=== PATIENT | female | born 1965 | race Caucasian/White ===

== ENCOUNTER 2017-04-13 07:24 | Outpatient (CLI) | payer OTHER ==
[~2017-04-13 07:24] MED LIST: CATAFLAM50 MG PO; OXYC1TAB9 PO; PROTONIX40 MG PO; ZOFRAN4 MG PO
== END 2017-04-13 07:35 | disposition home or self-care (01) ==
LOC: LAB 07:24
DX: K85.90 Acute pancreatitis without necrosis or infection, unspecified (principal); E06.5 Other chronic thyroiditis

== ENCOUNTER 2017-07-26 09:46 | Outpatient (CLI) | payer OTHER | END 2017-07-26 18:13 | disposition home or self-care (01) | LOC: LAB 09:46 | DX: K92.1 Melena (principal) ==

== ENCOUNTER 2017-07-27 07:00 | Day surgery (SDC) | payer OTHER | END 2017-07-27 10:00 | disposition home or self-care (01) | LOC: AMB-ENDOS 07:00 | DX: K64.8 Other hemorrhoids (principal) ==

== ENCOUNTER 2017-11-29 11:22 | Outpatient (CLI) | payer OTHER | END 2017-12-01 12:27 | disposition home or self-care (01) | LOC: MAMO-SONO 11:22 | DX: Z12.31 Encounter for screening mammogram for malignant neoplasm of breast (principal); N60.11 Diffuse cystic mastopathy of right breast ==

== ENCOUNTER → 2017-11-29 | Outpatient (CLI) | payer OTHER | END | disposition home or self-care (01) | LOC: LAB 14:36 | DX: Z11.3 Encounter for screening for infections with a predominantly sexual mode of transmission (principal) ==

== ENCOUNTER → 2018-05-12 | Outpatient (CLI) | payer OTHER | END | disposition home or self-care (01) | LOC: RAD 05-11 09:12 → SONOGRAMA 11:19 | DX: M25.542 Pain in joints of left hand (principal) ==

== ENCOUNTER 2018-12-19 10:22 | Outpatient (CLI) | payer OTHER | END 2018-12-19 11:46 | disposition home or self-care (01) | LOC: LAB 10:22 | DX: Z11.1 Encounter for screening for respiratory tuberculosis (principal) ==

== ENCOUNTER 2019-04-24 12:09 | Outpatient (CLI) | payer OTHER | END 2019-04-24 12:19 | disposition home or self-care (01) | LOC: LAB 12:09 | DX: E78.49 Other hyperlipidemia (principal); E02 Subclinical iodine-deficiency hypothyroidism; E55.9 Vitamin D deficiency, unspecified; D50.8 Other iron deficiency anemias ==

== ENCOUNTER 2019-04-25 13:27 | Outpatient (CLI) | payer OTHER | END 2019-04-25 14:00 | disposition home or self-care (01) | LOC: SONOGRAMA 13:27 | DX: E04.1 Nontoxic single thyroid nodule (principal) ==

== ENCOUNTER 2019-04-27 08:14 | Outpatient (CLI) | payer OTHER | END 2019-04-27 08:21 | disposition home or self-care (01) | LOC: LAB 08:14 | DX: E06.9 Thyroiditis, unspecified (principal) ==

== ENCOUNTER 2019-04-27 10:05 | Outpatient (CLI) | payer OTHER | END 2019-04-27 10:12 | disposition home or self-care (01) | LOC: SONOGRAMA 10:05 | DX: E04.2 Nontoxic multinodular goiter (principal); D35.1 Benign neoplasm of parathyroid gland ==

== ENCOUNTER → 2019-07-17 08:13 | Outpatient (CLI) | payer OTHER | END | disposition home or self-care (01) | LOC: LAB 08:13 | DX: E03.8 Other specified hypothyroidism (principal); E55.9 Vitamin D deficiency, unspecified ==

== ENCOUNTER → 2019-10-11 | Outpatient (CLI) | payer OTHER | END | disposition home or self-care (01) | LOC: SONOGRAMA 11:23 | PROVIDERS: ATTEND Radiology Diagnostic Radiology | DX: N93.8 Other specified abnormal uterine and vaginal bleeding (principal) ==

== ENCOUNTER 2019-12-01 10:00 | Outpatient (CLI) | payer OTHER | END 2019-12-01 15:43 | disposition home or self-care (01) | LOC: PPH VACUNA 10:00 | DX: Z23 Encounter for immunization (principal) ==

== ENCOUNTER → 2019-12-15 | Outpatient (CLI) | payer OTHER | END | disposition home or self-care (01) | LOC: TOM 10:20 | PROVIDERS: ATTEND Radiology Diagnostic Radiology | DX: R10.84 Generalized abdominal pain (principal) ==

== ENCOUNTER → 2019-12-19 | Outpatient (CLI) | payer OTHER | END | disposition home or self-care (01) | LOC: SONOGRAMA 08:38 | PROVIDERS: ATTEND Radiology Diagnostic Radiology | DX: M79.644 Pain in right finger(s) (principal) ==

== ENCOUNTER → 2019-12-20 | Outpatient (CLI) | payer OTHER | END | disposition home or self-care (01) | LOC: LAB 10:24 | PROVIDERS: ATTEND Radiology Diagnostic Radiology | DX: E03.8 Other specified hypothyroidism (principal) ==

== ENCOUNTER → 2020-01-17 | Outpatient (CLI) | payer OTHER | END | disposition home or self-care (01) | LOC: MAMO-SONO 10:46 | PROVIDERS: ATTEND Radiology Diagnostic Radiology | DX: Z12.31 Encounter for screening mammogram for malignant neoplasm of breast (principal) ==

== ENCOUNTER 2020-04-09 08:15 | Outpatient (CLI) | payer OTHER | END 2020-04-09 15:00 | disposition home or self-care (01) | LOC: LAB 08:15 | PROVIDERS: ATTEND Radiology Diagnostic Radiology | DX: E03.8 Other specified hypothyroidism (principal); D64.89 Other specified anemias; R73.03 Prediabetes ==

== ENCOUNTER 2020-04-17 11:32 | Outpatient (CLI) | payer OTHER | END 2020-04-17 15:00 | disposition home or self-care (01) | LOC: LAB 11:32 | PROVIDERS: ATTEND Radiology Diagnostic Radiology | DX: E78.2 Mixed hyperlipidemia (principal); Z00.8 Encounter for other general examination ==

== ENCOUNTER 2020-12-09 08:00 | Outpatient (CLI) | payer OTHER ==
[~2020-12-09 08:00] MED LIST changes: +SYNTHROID75 MCG PO
== END 2020-12-09 08:30 | disposition home or self-care (01) ==
LOC: PPH VACUNA 08:00
PROVIDERS: ATTEND Emergency Medicine Pediatric Emergency Medicine
DX: Z23 Encounter for immunization (principal)

== ENCOUNTER 2020-12-19 08:23 | Outpatient (CLI) | payer OTHER | END 2020-12-19 09:00 | disposition home or self-care (01) | LOC: SONOGRAMA 08:23 | PROVIDERS: ATTEND Radiology Diagnostic Radiology | DX: N95.0 Postmenopausal bleeding (principal) ==

== ENCOUNTER 2021-02-12 13:55 | Outpatient (CLI) | payer OTHER | END 2021-02-12 14:00 | disposition home or self-care (01) | LOC: MAMO-SONO 13:55 | PROVIDERS: ATTEND Radiology Diagnostic Radiology | DX: N64.89 Other specified disorders of breast (principal); Z12.31 Encounter for screening mammogram for malignant neoplasm of breast ==

== ENCOUNTER 2021-03-28 08:20 | Outpatient (CLI) | payer OTHER | END 2021-03-28 16:07 | disposition home or self-care (01) | LOC: LAB 08:20 | PROVIDERS: ATTEND Radiology Diagnostic Radiology | DX: U07.1 COVID-19 (principal) ==

== ENCOUNTER 2021-04-03 08:21 | Outpatient (CLI) | payer OTHER | END 2021-04-03 08:35 | disposition home or self-care (01) | LOC: TOM 08:21 | PROVIDERS: ATTEND Radiology Diagnostic Radiology | DX: R10.30 Lower abdominal pain, unspecified (principal) ==

== ENCOUNTER 2021-04-28 09:03 | Outpatient (CLI) | payer OTHER | END 2021-04-28 10:06 | disposition home or self-care (01) | LOC: LAB 09:03 | PROVIDERS: ATTEND Radiology Diagnostic Radiology | DX: E03.9 Hypothyroidism, unspecified (principal); E78.2 Mixed hyperlipidemia; D64.9 Anemia, unspecified ==

== ENCOUNTER 2021-05-14 08:37 | Outpatient (CLI) | payer OTHER | END 2021-05-14 12:54 | disposition home or self-care (01) | LOC: LAB 08:37 | PROVIDERS: ATTEND Radiology Diagnostic Radiology | DX: Z02.79 Encounter for issue of other medical certificate (principal) ==

== ENCOUNTER 2021-06-17 08:00 | Outpatient (CLI) | payer OTHER | END 2021-06-17 08:30 | disposition home or self-care (01) | LOC: PPH VACUNA 08:00 | PROVIDERS: ATTEND Emergency Medicine Pediatric Emergency Medicine | DX: Z23 Encounter for immunization (principal) ==

== ENCOUNTER 2021-11-12 08:00 | Outpatient (CLI) | payer OTHER | END 2021-11-12 08:05 | disposition home or self-care (01) | LOC: PPH VACUNA 08:00 | PROVIDERS: ATTEND Emergency Medicine Pediatric Emergency Medicine | DX: Z23 Encounter for immunization (principal) ==

== ENCOUNTER 2021-11-26 12:10 | Outpatient (CLI) | payer OTHER | END 2021-11-26 12:20 | disposition home or self-care (01) | LOC: PPH VACUNA 12:10 | PROVIDERS: ATTEND Emergency Medicine Pediatric Emergency Medicine | DX: Z23 Encounter for immunization (principal) ==

== ENCOUNTER → 2022-03-26 | Outpatient (CLI) | payer OTHER | END | disposition home or self-care (01) | LOC: MAMO-SONO 10:04 | PROVIDERS: ATTEND Radiology Diagnostic Radiology | DX: Z12.31 Encounter for screening mammogram for malignant neoplasm of breast (principal); N63.0 Unspecified lump in unspecified breast; R10.9 Unspecified abdominal pain; R10.2 Pelvic and perineal pain ==

== ENCOUNTER 2022-04-29 09:18 | Outpatient (CLI) | payer OTHER | END 2022-04-29 09:21 | disposition home or self-care (01) | LOC: LAB 09:18 | PROVIDERS: ATTEND Radiology Diagnostic Radiology | DX: E03.9 Hypothyroidism, unspecified (principal); E78.2 Mixed hyperlipidemia; D50.9 Iron deficiency anemia, unspecified ==

== ENCOUNTER 2022-12-14 11:30 | Outpatient (CLI) | payer OTHER | END 2022-12-14 11:40 | disposition home or self-care (01) | LOC: PPH VACUNA 11:30 | PROVIDERS: ATTEND Emergency Medicine Pediatric Emergency Medicine | DX: Z23 Encounter for immunization (principal) ==

== ENCOUNTER → 2023-12-15 07:53 | Outpatient (CLI) | payer OTHER ==
[2023-12-15 08:38] LABS: HEMATOCRIT 38.2 % (36.0-45.00); HEMOGLOBIN 12.8 g/dL (12.0-15.00); MEAN CELL VOLUME 93.4 fL (80.00-100.00); MEAN CORPUSCULAR HEMOGLOBIN 31.4 pg (27.00-32.0); MEAN CORPUSCULAR HGB CONC 33.6 g/dl (32.0-36.0); PLATELET COUNT 257 K/uL (150-450); RED BLOOD COUNT 4.09 M/uL (4.00-6.00); RED CELL DISTRIBUTION WIDTH 14.2 % (11.5-14.5)
[2023-12-15 09:47] LABS: BILIRUBIN TOTAL 0.44 mg/dL (0.3-1.2); CALCIUM 9.7 mg/dL (8.5-10.1); CHOL HDL RATIO 2.3 (0-5.0); CREATININE SERUM 0.84 mg/dL (0.55-1.02); GFR 69.16; GLOBULINA 3.9 G/DL (2.4-3.5); POTASSIUM 5.1 mEq/L (3.5-5.1); T4 TOTAL 10.1 UG/DL (4.8-13.9); TOTAL PROTEIN 7.9 gm/dL (6.4-8.2); TSH 2.69 uIU/mL (0.358-3.74)
[2023-12-15 10:10] LABS: PH,URINE 5.5 (5.0-8.0); URINE BILIRRUBIN Negative (NEGATIVE); URINE BLOOD Negative; URINE COLOR Yellow; URINE GLUCOSE Negative (NEGATIVE); URINE KETONE Negative (NEGATIVE); URINE LEUKOCYTE Small; URINE NITRATE Negative; URINE PROTEIN Negative (NEGATIVE); URINE UROBILINOGEN 0.2 E.U./dl
[2023-12-15 10:14] LABS: URINE BACTERIA 28.9 uL (0.0-1933); URINE EPITHELIAL CELLS 7.3 uL (0.0-38.8); URINE WBC 15.2 uL (0.0-23.2)
[2023-12-15 10:21] LABS: URINE APPEARANCE CLEAR; URINE CAST 0.76 uL (0.0-1.40)
== END | disposition home or self-care (01) ==
LOC: LAB 07:53
PROVIDERS: ATTEND Internal Medicine
DX: D53.9 Nutritional anemia, unspecified (principal); E78.00 Pure hypercholesterolemia, unspecified; E03.8 Other specified hypothyroidism; R30.0 Dysuria

== ENCOUNTER 2023-12-29 01:00 | Outpatient (CLI) | payer OTHER | END 2023-12-29 02:00 | disposition home or self-care (01) | LOC: PPH VACUNA 01:00 | PROVIDERS: ATTEND Emergency Medicine Pediatric Emergency Medicine | DX: Z23 Encounter for immunization (principal) ==

== ENCOUNTER 2024-02-18 08:01 | Outpatient (CLI) | payer OTHER | END 2024-02-18 08:30 | disposition home or self-care (01) | LOC: RAD 08:01 | PROVIDERS: ATTEND Radiology Diagnostic Radiology | DX: Z02.79 Encounter for issue of other medical certificate (principal) ==

== ENCOUNTER 2024-02-18 08:09 | Outpatient (CLI) | payer OTHER | END 2024-02-18 08:10 | disposition home or self-care (01) | LOC: LAB 08:09 | PROVIDERS: ATTEND Radiology Diagnostic Radiology | DX: Z13.9 Encounter for screening, unspecified (principal) ==

== ENCOUNTER 2024-05-03 08:07 | Outpatient (CLI) | payer OTHER ==
[2024-05-03 08:43] LABS: HEMATOCRIT 38.3 % (36.0-45.00); HEMOGLOBIN 12.7 g/dL (12.0-15.00); MEAN CELL VOLUME 92.8 fL (80.00-100.00); MEAN CORPUSCULAR HEMOGLOBIN 30.7 pg (27.00-32.0); MEAN CORPUSCULAR HGB CONC 33.1 g/dl (32.0-36.0); PLATELET COUNT 250 K/uL (150-450); RED BLOOD COUNT 4.13 M/uL (4.00-6.00); RED CELL DISTRIBUTION WIDTH 13.3 % (11.5-14.5)
[2024-05-03 08:43] LABS: PH,URINE 5.5 (5.0-8.0); URINE APPEARANCE Clear; URINE BILIRRUBIN Negative (NEGATIVE); URINE BLOOD Negative; URINE COLOR Yellow; URINE GLUCOSE Negative (NEGATIVE); URINE KETONE Negative (NEGATIVE); URINE LEUKOCYTE Small; URINE NITRATE Negative; URINE PROTEIN Negative (NEGATIVE); URINE UROBILINOGEN 0.2 E.U./dl
[2024-05-03 08:44] LABS: URINE BACTERIA 39.1 uL (0.0-1933); URINE WBC 24.9 uL (0.0-23.2)
[2024-05-03 09:55] LABS: ALBUMIN 3.9 gm/dL (3.4-5.0); BILIRUBIN TOTAL 0.49 mg/dL (0.3-1.2); CALCIUM 9.8 mg/dL (8.5-10.1); CHOL HDL RATIO 2.3 (0-5.0); CREATININE SERUM 0.84 mg/dL (0.55-1.02); GFR 69.16; GLOBULINA 3.6 G/DL (2.4-3.5); POTASSIUM 4.71 mEq/L (3.5-5.1); T4 TOTAL 12.01 UG/DL (4.8-13.9); TOTAL PROTEIN 7.5 gm/dL (6.4-8.2); TSH 0.408 uIU/mL (0.358-3.74)
[2024-05-03 10:34] LABS: URINE CAST 0.88 uL (0.0-1.40)
[2024-05-03 10:35] LABS: URINE MUCUS HEAVY
[2024-05-03 13:55] LABS: CORTISOL 10.05 ug/dl; T3 TOTAL 0.752 ng/ml (0.846-2.02); VITAMIN D3 25 HYDROXY 33.82 ng/ml (30-120)
== END 2024-05-03 14:48 | disposition home or self-care (01) ==
LOC: LAB 08:07
DX: D53.9 Nutritional anemia, unspecified (principal); E78.00 Pure hypercholesterolemia, unspecified; E03.8 Other specified hypothyroidism; R30.0 Dysuria

== ENCOUNTER 2024-07-19 14:28 | Outpatient (CLI) | payer OTHER | END 2024-07-19 14:38 | disposition home or self-care (01) | LOC: EKG 14:28 | DX: I10 Essential (primary) hypertension (principal); R00.2 Palpitations ==